=== PATIENT | male | born 1995 | race Caucasian/White ===

== ENCOUNTER → 2018-09-19 | Outpatient (CLI) | payer OTHER ==
--- NOTE | 2018-09-20 10:36 | SLEEP ---
DATE OF STUDY: 09/19/2018 SLEEP STUDY ATTENDING PHYSICIAN: Vern Young M.D. The patient is 22 years old, who weighs 220 pounds with a BMI of 32. The patient's [place] score is 11. The patient underwent sleep study at [facility]. This was a diagnostic study. During the night study, the patient spent 415 minutes in bed and slept for 317 minutes, with a sleep efficiency of 76%. Sleep latency was 9 minutes with a REM latency of 242 minutes. Overall, sleep architecture showed increased stage 1 sleep, normal stage 2 sleep, increased N3 sleep and normal REM sleep. During the night study, the patient had 1 obstructive apnea, 9 mixed apneas, no central apneas and 30 hypopneas. The patient's apnea-hypopnea index was 8 per hour, with a supine index of 8 per hour and a REM index of 4 per hour. PLMS were seen at index of 20 per hour and 6 per hour caused EEG arousals. EKG monitoring revealed an average heart rate of 67 beats per minute. No arrhythmias observed. Oximetry study revealed a mean oxygen saturation of 92%, the lowest of 88%. 1.6% of the time, oxygen saturation remained between 80% and 89%. Due to low AHI, the patient did not meet the split-night criteria for CPAP initiation. IMPRESSION: 1. Mild sleep apnea-hypopnea syndrome at an apnea-hypopnea index of 8 per hour. 2. No clinically significant nocturnal hypoxia. 3. Mild periodic limb movements of sleep. RECOMMENDATIONS: 1. The patient is clinically symptomatic with an [place] score of 11. I would recommend treating the patient's sleep apnea with either oral appliance as recommended by the dentist versus a trial of CPAP titration. 2. Weight loss is advised. 3. Once the patient is optimally treated, then follow up in 4-6 weeks to assess compliance to treatment and to document clinical improvement. 4. Avoid PSYCH TECH depressants. 5. Caution regarding driving until symptoms of sleep apnea resolve with the above recommendations. YAYA HEBERT MD DR: [email or web address] JOB#: [id number] / [id number] ecc Dr. DEVI Larsen GEORGE MD
== END | disposition home or self-care (01) ==
LOC: SLPLAB 18:58
PROVIDERS: ATTEND Internal Medicine Pulmonary Disease
DX: G47.33 Obstructive sleep apnea (adult) (pediatric) (principal); G47.61 Periodic limb movement disorder
CPT/HCPCS: 95810